=== PATIENT | male | born 1950 | race Caucasian/White ===

== ENCOUNTER 2020-11-13 14:55 | Emergency (ER) | payer MEDICARE, MEDICAID ==
[~2020-11-13] VITALS: Ht 175.3 cm; Wt 72.7 kg
[2020-11-13 15:10] VITALS: Ht 175.3 cm; Wt 72.7 kg
[2020-11-13 15:31] LABS: BASOPHILS 0.4 % (0-2); EOSINOPHILS 1.8 % (0-7); HEMATOCRIT 44.4 % (42.0-54.0); IMMATURE GRANULOCYTES 0.3 % (0-5); LYMPHOCYTE ABS# 2.56 10x3/uL (1.32-3.57); LYMPHOCYTES 23.7 % (15-50); MCH 30.4 pg (26.0-34.0); MCHC 33.8 g/dL (31.0-37.0); MCV 90.1 fL (80.0-100.0); MEAN PLATELET VOLUME 10.9 fL (7.4-10.4); MONOCYTES 10.9 % (2-11); NEUTROPHIL ABS# 6.79 10x3/uL (1.78-5.38); NEUTROPHILS 62.9 % (40-80); PLATELET COUNT 227 10x3/uL (130-400); RBC 4.93 10x6/uL (4.20-6.10); RDW 12.8 % (11.5-14.5); WBC 10.8 10x3/uL (4.8-10.8)
[2020-11-13 15:47] LABS: BILIRUBIN NEGATIVE (NEGATIVE); KETONE NEGATIVE (NEGATIVE); NITRITE NEGATIVE (NEGATIVE); UROBILINOGEN NORMAL mg/dL (< 2)
[2020-11-13 15:49] LABS: BACTERIA MODERATE HPF (NONE SEEN); WHITE CELLS - URINE >50 HPF (0-1)
[2020-11-13 15:53] LABS: CALC OSMOLALITY 273 mosm/kg (275-300); CALCIUM 9.1 mg/dL (8.5-10.1); CARBON DIOXIDE 27.6 mmol/L (21.0-32.0); CHLORIDE - SERUM 99 mmol/L (98-107); CREATININE - SERUM 0.9 mg/dL (0.6-1.3); GLUCOSE 190 mg/dL (74-106); POTASSIUM - SERUM 4.1 mmol/L (3.5-5.1); SODIUM 134 mmol/L (136-145); UREA NITROGEN 14 mg/dL (7-18); eGFR NON AFRICAN AMERICAN 88 mL/min (90-120)
[2020-11-13 16:03] LABS: INR 1.11 (0.85-1.17); PROTIME 13.2 SECONDS (11.6-15.0)
[2020-11-13 16:04] LABS: APTT 32.5 SECONDS (22.8-39.4)
[2020-11-13 16:12] LABS: ALBUMIN 3.7 g/dL (3.4-5.0); ALKALINE PHOSPHATASE 195 U/L (30-120); ALT (SGPT) 26 U/L (10-68); BILIRUBIN - TOTAL 0.46 mg/dL (0.2-1.3); PROTEIN - SERUM 8.4 g/dL (6.4-8.2)
[2020-11-13] MEDS ORDERED: HYDROCODON-ACE1 EA10 PO (18:45)
[2020-11-13 20:43] VITALS: BP 138/84
== END 2020-11-13 20:43 | disposition home or self-care (01) ==
LOC: D.ER 14:55
PROVIDERS: Family Medicine
DX: R31.9 Hematuria, unspecified (principal); R10.2 Pelvic and perineal pain; N32.9 Bladder disorder, unspecified

== ENCOUNTER 2020-11-25 16:17 | Emergency (ER) | payer MEDICARE, MEDICAID ==
[~2020-11-25] VITALS: Ht 175.3 cm; Wt 72.7 kg
[~2020-11-25 16:17] MED LIST: HYDROCODON-ACE1 EA10 PO
[2020-11-25 16:32] VITALS: BP 136/73; Ht 175.3 cm; Wt 72.7 kg
[2020-11-25] MEDS ORDERED: HYDROCODON-ACE1 EA10 PO (17:34)
== END 2020-11-25 17:44 | disposition home or self-care (01) ==
LOC: D.ER 16:17
DX: C67.9 Malignant neoplasm of bladder, unspecified (principal); Z76.0 Encounter for issue of repeat prescription